=== PATIENT | male | born 1980 | race Caucasian/White ===

== ENCOUNTER → 2017-10-24 | Outpatient (CLI) | payer BC ==
--- NOTE | 2017-10-24 12:02 | RAD ---
Three-view left shoulder study Clinical indications: Left shoulder pain for one and half weeks. No known injury. FINDINGS: No acute fracture or dislocation or osteolytic process is seen. No AC joint separation is seen. There is lateral downsloping of the acromial process which may impinge the acromial humeral space resulting in rotator cuff disease. IMPRESSION: No acute osseous abnormality is evident. Electronically signed by: Syed Blood MD (10/24/2017 11:59 AM) [id number]
== END | disposition home or self-care (01) ==
LOC: PMG 11:18
PROVIDERS: ATTEND Nurse Practitioner Family
DX: M25.512 Pain in left shoulder (principal)
CPT/HCPCS: 73030